=== PATIENT | female | born 1985 | race Two or more races ===

== ENCOUNTER 2020-04-29 09:22 | Emergency (ER) | payer OTHER ==
[~2020-04-29] VITALS: Ht 162.6 cm; Wt 63.5 kg
[2020-04-29 09:24] VITALS: BP 148/62
--- NOTE | 2020-04-29 09:37 | NUR ---
AT BEDSIDE FOR EVAL.
--- NOTE | 2020-04-29 10:03 | NUR ---
Patient discharged to home in stable condition. Written and verbal after care instructions given. Patient verbalizes understanding of instruction.
== END 2020-04-29 10:05 | disposition home or self-care (01) ==
LOC: ER 09:26
DX: S01.01XA Laceration without foreign body of scalp, initial encounter (principal); W20.8XXA Other cause of strike by thrown, projected or falling object, initial encounter; Y93.89 Activity, other specified; Y92.89 Other specified places as the place of occurrence of the external cause; Y99.0 Civilian activity done for income or pay